=== PATIENT | male | born 1960 | race Caucasian/White ===

== ENCOUNTER → 2023-05-27 15:47 | Outpatient (BNVA) | payer MEDICARE, SELFPAY | PROVIDERS: Visit Provider Internal Medicine Cardiovascular Disease | DX: R07.9 Chest pain, unspecified (principal); R94.39 Abnormal result of other cardiovascular function study; I21.19 ST elevation (STEMI) myocardial infarction involving other coronary artery of inferior wall; I95.89 Other hypotension; I48.0 Paroxysmal atrial fibrillation; F10.10 Alcohol abuse, uncomplicated; F33.40 Major depressive disorder, recurrent, in remission, unspecified; R94.31 Abnormal electrocardiogram [ECG] [EKG] | CPT/HCPCS: 93005; 99205 ==

== ENCOUNTER 2023-06-05 08:48 | Outpatient (CLI) | payer MEDICARE, SELFPAY ==
[2023-06-05 09:05] VITALS: BMI 32.5
--- NOTE | 2023-06-05 09:17 | NMCV_ITS ---
NM joe perf SPECT r/s* [id number] Alexander Barbour Age: 63 Gender: M : 1960 Exam Date: 06/05/2023 09:46 Ordering Phys: Cherise Ro MD ([email or web address]) Technologist: ISCA Aparicio Exam Location: [facility] Indications: CORONARY ANGIOPLASTY STATUS STRESS TEST [facility] IMAGE PROTOCOL Rest/Stress 1 Lexiscan Day Radiopharmaceutical Dose (mCi) Administration Site Administered by Rest: Tc-99m 10.6 IV ISAC Yates Sestamibi Stress:Tc-99m 32.6 IV ISAC Yates Sestamibi Rest: 05-Jun-2023 60 Discovery 630 Stress: 05-Jun-2023 30 Discovery 630 0.4mg Lexiscan. Supine position only as patient was unable to lay prone. SPECT RESULTS Technical Quality: Excellent Raw Data Analysis: Normal Image Corrections: No attenuation or motion correction applied Summed Stress Score: 3 Summed Rest Score: 0 Summed Difference Score: 3 PERFUSION FINDINGS Moderate area of slightly decreased tracer uptake in the basal and mid inferior and mid inferolateral regions. Some reversibility was noted with the supine imaging. However with the prone imaging,. No significant reversibility was noted FUNCTIONAL RESULTS (calculated via Gated SPECT) Stress Image LV EF (%): 82 Stress EDV (mL):73 TID: 0.81 Stress ESV (mL):13 FUNCTIONAL FINDINGS: Segmental wall motion analysis revealing no gross wall motion abnormalities IMPRESSIONS 1. Myocardial perfusion imaging revealing moderate area of slightly decreased tracer uptake involving the inferior and inferolateral regions with some reversibility in the supine position suggesting myocardial Ischemia in the distribution of the right coronary artery. However because of the inconsistency with the prone imaging, the reliability of this finding is questionable. 2. Normal LV ejection fraction of 82%. 3. LV wall motion analysis revealing no gross wall motion abnormalities. 4. Normal LV volume. No similar previous studies are available for comparison Dr Cherise Ro MD FACC (Electronically Signed) Final Date: 05 June 2023 16:35 S
--- NOTE | 2023-06-05 09:17 | ECG_ITS ---
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 Interpretive Statements NAME OF STUDY: LEXISCAN SESTAMIBI STRESS TEST INDICATION: Chest Pain, PROCEDURE: At the baseline, the EKG revealed normal sinus rhythm with normal ST Ts.. The baseline heart was 86 bpm with a blood pressue of 104/76 mm of Hg Lexiscan was infused over a period of 20 seconds. A total of 0.4 milligrams of Lexiscan was infused. The stress phase was continued for a total of 5 minutes. Heart rate at the end of the stress phase was 84 bpm with a blood pressure 104/67 mm of Hg. The EKG at the peak infusion revealed no significant changes. Sestamibi was injected 20 seconds after the Lexiscan infusion. Heart rate at the end of the recovery phase was 82 bpm with a blood pressure of 107/68 mm of Hg. CONCLUSION: 1. No significant EKG changes with the LexiScan infusion 2. No LexiScan induced chest pain or cardiac arrhythmia 3. Normal blood pressure and heart rate response 4. Sestamibi/sestamibi perfusion scan pending; see separate report. Electronically Signed On 06-12-2023 7:57:38 CDT by Cherise Ro M.D. [email or web address]
[2023-06-05] MEDS: regadenoson 0.4 Mg/5 ml Syringe 0.400000000000000022 MG IVP (10:36)
[2023-06-05 10:47] VITALS: BP 107/68; PULSE 83
--- NOTE | 2023-06-05 12:30 | USCV_ITS ---
Alexander Barbour Age: 63 Gender: M : 1960 Exam Date: 06/05/2023 09:12 Ordering Phys: Cherise Ro MD ([email or web address]) Technologist: MARIA ESTHER [place] [facility] [place]: BARNETT, MURMUR BP: 90 / 50 HR: 74 Rhythm: Sinus Technical Quality: Adequate MEASUREMENTS (Male / Female) Normal Values 2D ECHO LVOT Diameter 2.0 cm LV Ejection Fraction MOD 2C 70.0 % LV Ejection Fraction 2C AL 73.5 % LA Diameter 4.2 cm RA Systolic Volume 4C AL 26.7 ml RA Systolic Volume 4C MOD 26.8 ml LA Sys Volume AL 37.8 cm cubed LA Sys Volume Index AL 15.9 cm cubed/m squared Aorta at Sinotubular Diameter 2.9 cm IVC Diameter 1.7 cm M-MODE LA Ao Ratio MM 1.1 AV Cusp Separation MM 1.3 cm DOPPLER AV Peak Velocity 213.7 cm/s LVOT Peak Velocity 170.0 cm/s AV Area Cont Eq vti 2.6 cm squared AV Area Cont Eq pk 2.5 cm squared MV Peak Velocity 111.0 cm/s MV Area PHT 2.7 cm squared Mitral E to A Ratio 0.7 TR Peak Velocity 207.0 cm/s TR Peak Gradient 17.1 mmHg TR Mean Velocity 159.0 cm/s TR Mean Gradient 11.2 mmHg TR Velocity Time Integral 51.8 cm TV Peak E Velocity 59.0 cm/s Right Atrial Pressure 3.0 mmHg Pulmonary Artery Systolic Pressu 20.1 mmHg PV Peak Velocity 125.0 cm/s RV Ejection Time 0.3 s FINDINGS Left Ventricle Normal left ventricular size and systolic function, EF 73%.no regional wall motion abnormalities. Mild left ventricular hypertrophy. Grade I/IV diastolic dysfunction (abnormal relaxation filling pattern), normal to mildly elevated filling pressures. Right Ventricle The right ventricle is normal in size and function. Right Atrium The right atrium is normal in size. Left Atrium The left atrium is normal in size. Mitral Valve No gross abnormalities noted Aortic Valve Thickened aortic valve. Aortic valve sclerosis. Tricuspid Valve Trace tricuspid valve regurgitation. Pulmonic Valve No gross abnormalities noted Pericardium Normal pericardium without effusion. Aorta Normal ascending aorta dimension. IVC Normal inferior vena cava. CONCLUSIONS Normal left ventricular size and systolic function, EF 73%.no regional wall motion abnormalities. Mild left ventricular hypertrophy. Grade I/IV diastolic dysfunction (abnormal relaxation filling pattern), normal to mildly elevated filling pressures. Features of aortic valve sclerosis. Peak velocity of the aortic valve is 2.13 m/s Trace tricuspid valve regurgitation. There is no pericardial effusion. There are no intracardiac masses. No similar previous studies are available for comparison Dr Cherise Ro MD FAC (Electronically Signed) Final Date: 12 Jun 2023 20:19 S
== END 2023-06-05 08:49 | disposition home or self-care (01) ==
PROVIDERS: PCP Family Medicine; Visit Provider Internal Medicine Cardiovascular Disease
DX: R06.09 Other forms of dyspnea (principal); R07.9 Chest pain, unspecified; I51.7 Cardiomegaly; I35.8 Other nonrheumatic aortic valve disorders
CPT/HCPCS: 36415; 78452; 93017; 93306; 96374; A9500; J2785

== ENCOUNTER → 2023-06-12 10:31 | Outpatient (BNVA) | payer MEDICARE, SELFPAY | PROVIDERS: PCP Family Medicine; Visit Provider Internal Medicine Cardiovascular Disease | DX: R94.31 Abnormal electrocardiogram [ECG] [EKG] (principal) | CPT/HCPCS: 93005 ==

== ENCOUNTER → 2023-09-15 09:45 | Outpatient (BNVA) | payer MEDICARE, SELFPAY | PROVIDERS: PCP Family Medicine; Visit Provider Nurse Practitioner Family | DX: I48.0 Paroxysmal atrial fibrillation (principal) | CPT/HCPCS: 99213 ==